=== PATIENT | female | born 1935 | race Caucasian/White ===

== ENCOUNTER 2018-04-26 12:29 | Emergency (ER) | payer BC, MEDICARE | END 2018-04-26 13:36 | disposition home or self-care (01) | LOC: SCSER 12:29 | DX: H53.8 Other visual disturbances (principal); I10 Essential (primary) hypertension; E78.5 Hyperlipidemia, unspecified | CPT/HCPCS: 99283 ==

== ENCOUNTER 2018-06-02 03:01 | Emergency (ER) | payer BC, MEDICARE ==
[2018-06-02] MEDS ORDERED: Acetaminophen 500 MG TAB ONE (03:39)
[2018-06-02] MEDS ORDERED: Metoclopramide HCl 10 MG/2 ML VIAL ONE (03:39)
[2018-06-02 03:59] LABS: #Basophils 0.1 thou/uL (0.0-0.2); #Eosinphils 0.6 thou/uL (0.0-0.7); #Lymphocytes 1.4 thou/uL (1.20-3.40); #Monocytes 0.6 thou/uL (0.11-0.59); #Neutrophils 4.2 thou/uL (1.40-6.50); %Basophils 1.1 % (0.0-1.0); %Eosinophils 8.2 % (0.0-10.0); %Lymphocytes 20.5 % (21.0-51.0); %Monocytes 8.6 % (0.0-10.0); %Neutrophils 61.6 % (42.0-75.0); Hemoglobin 13.6 g/dL (12.0-16.0); Mean Corpuscular HGB CONC 33.9 g/dL (32.0-36.0); Mean Corpuscular Hemoglobin 33.5 pg (27.0-31.0); Mean Corpuscular Volume 98.6 fL (78.0-98.0); Mean Platelet Volume 6.3 fL (7.4-10.4); Platelet Count 293 thou/uL (130-400); RBC Distribution Width 12.5 % (11.5-14.5); Red Blood Cell (RBC) Count 4.07 mill/uL (4.20-5.40); White Blood Cell (WBC) Count 6.9 thou/uL (4.8-10.8)
[2018-06-02 04:00] LABS: Bilirubin Negative (Negative); Blood, Urine Trace (Negative); Clarity Clear (Clear); Glucose, Urine (Dipstick) Negative (Negative); Leukocyte Negative (Negative); Nitrite Negative (Negative); Protein, Urine (Dipstick) 100 mg/dL (Neg-Trace); Specific Gravity, Urine 1.015 (1.005-1.030); Urobilinogen 0.2 mg/dL (0.2-1.0)
[2018-06-02 04:09] LABS: Bacteria/HPF None Seen HPF (None Seen); Hyaline Casts/LPF 0-3 HYALINE CAST LPF (0-3 Hyaline); RBC/HPF 0-3 HPF (0-3); Squamous Epithelial 0-3 HPF (0-3); WBC/HPF 0-3 HPF (0-3)
[2018-06-02 04:14] LABS: Anion Gap 16 mmol/L (10-20); BUN (Urea Nitrogen) 14 mg/dL (9.8-20.1); Calc. Creatinine Clearance 0 mL/min (70-130); Calcium 9.5 mg/dL (7.8-10.44); Carbon Dioxide 23 mmol/L (23-31); Chloride 108 mmol/L (98-107); Estimated GFR-MDRD 54; Glucose 114 mg/dL (83-110); Potassium 3.8 mmol/L (3.5-5.1); Sodium 143 mmol/L (136-145)
[2018-06-02] MEDS ORDERED: Ketorolac Tromethamine 30 MG/ML VIAL ONE (04:23)
[2018-06-02] MEDS ORDERED: hydrALAZINE 20 MG/ML VIAL ONE (04:42)
--- NOTE | 2018-06-02 08:43 | CT ---
PRELIMINARY REPORT/[facility]/EMERGENTY AFTER-HOURS PROCEDURE CT Head Without Contrast EXAM DATE/TIME: 06/02/2018 3:39 AM CLINICAL HISTORY: 82 years old, female; Pain; Patient HX: Patient presents for evaluation of high blood pressure, [place] TECHNIQUE: Axial computed tomography images of the head/brain without contrast. COMPARISON: No relevant prior studies available. FINDINGS: Brain: Normal. No hemorrhage. No significant white matter disease. No edema. Ventricles: Normal. No ventriculomegaly. Bones/joints: Unremarkable. No acute fracture. Sinuses: Visualized sinuses are unremarkable. No acute sinusitis. Mastoid air cells: Visualized mastoid air cells are unremarkable. No mastoid effusion. Soft tissues: Unremarkable. IMPRESSION: No acute intracranial hemorrhage. Thank you for allowing us to participate in the care of your patient. Dictated and Authenticated by: Yusuf Nuñez MD 06/02/2018 3:49 AM Central Time ([place] & [place]) FINAL REPORT BY DR. GROSS EMERGENCY AFTER HOURS STUDY CT BRAIN NONCONTRAST: HISTORY: 82-year-old female with headache and hypertension. FINDINGS: There is no midline shift or any other mass effect. There is no evidence of acute intracranial hemor rhage, large cortical infarct, obstructive hydrocephalus, or extraaxial fluid collection. The calvar ium is intact. This report agrees with the preliminary report by Sasha. IMPRESSION: No acute intracranial findings. jennifer [] POS: JEFF
== END 2018-06-02 05:21 | disposition home or self-care (01) ==
LOC: SCSER 03:01
DX: I10 Essential (primary) hypertension (principal); R51 Headache
CPT/HCPCS: 70450; 80048; 81003; 81015; 85025; 93005; 96365; 96375; J0360; J1885; J2765